=== PATIENT | male | born 1960 | race African-American/Black ===

== ENCOUNTER 2019-03-20 00:59 | Emergency (ER) | payer MEDICARE, OTHER ==
[~2019-03-20] VITALS: Ht 185.4 cm; Wt 87.8 kg
[2019-03-20 01:11] VITALS: Ht 185.4 cm; Wt 87.8 kg
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
[2019-03-20] MEDS ORDERED: DIV250 PO (03:34)
[2019-03-20] MEDS ORDERED: LEVE500S8 PO (03:34)
[2019-03-20] MEDS ORDERED: QUET25TA PO (03:34)
[2019-03-20] MEDS ORDERED: LEVETIRACETAM 1000 MG (PMX) 100 ML IVPB ONE (04:00)
[2019-03-20] MEDS ORDERED: DIVALPROEX (EC) 500 MG TAB PO ONE (04:00)
[2019-03-20] MEDS ORDERED: DIVALPROEX (EC) 250 MG TAB PO ONE (04:00)
[2019-03-20] MEDS ORDERED: LEVE750T70 PO (04:01)
[2019-03-20] MEDS ORDERED: DIVA-48 PO (04:02)
[2019-03-20 05:49] VITALS: BP 130/81; PULSE 81; RESP 18
== END 2019-03-20 05:57 | disposition home or self-care (01) ==
LOC: E/R 00:59
DX: G40.909 Epilepsy, unspecified, not intractable, without status epilepticus (principal); F10.10 Alcohol abuse, uncomplicated
CPT/HCPCS: 36415; 71045; 80048; 80164; 80185; 80307; 83880; 85025; 96374; 99284; J1953

== ENCOUNTER 2019-05-01 01:30 | Emergency (ER) | payer MEDICARE, OTHER ==
[~2019-05-01] VITALS: Ht 185.4 cm; Wt 82.4 kg
[~2019-05-01 01:30] MED LIST: DIV250 PO; DIVA-48 PO; LEVE500S8 PO; LEVE750T70 PO; QUET25TA PO
[2019-05-01 01:48] VITALS: Ht 185.4 cm; Wt 82.4 kg
--- NOTE | 2019-05-01 02:37 | ERD ---
ER Documentation Chief Complaint Chief Complaint needs help; suicidal thoughts no plan; on psych meds; drugs; alcohol intox HPI This is a 59-year-old male who presents for evaluation of suicidal ideations with the plan. Patient states that he has a history of alcohol abuse, he denies any homicidal ideations. He denies any recent head trauma, no fever. He endorses recent alcohol use. States he has been on psychiatric medications past, he is not sure about his diagnosis. ROS All systems reviewed and are negative except as per history of present illness. Medications Home Meds Active Scripts Divalproex Sodium* (Depakote*) 500 Mg Tablet.dr, 250 MG PO TID for 14 Days, TAB Prov:GABY COTTRELL MD 03/20/19 Levetiracetam* (Keppra*) 750 Mg Tablet, 750 MG PO BID for 14 Days, TAB Prov:GABY COTTRELL MD 03/20/19 Reported Medications Levetiracetam* (Levetiracetam*) 500 Mg/5 Ml Solution, 750 MG PO BID, ML 03/20/19 Divalproex Sodium* (Divalproex Sodium*) 250 Mg Tablet.dr, 250 MG PO TID, #90 TAB 03/20/19 Quetiapine Fumarate* (Seroquel*) 25 Mg Tablet, PO BID, #60 TAB 03/20/19 Allergies Allergies: Coded Allergies: morphine (Verified Allergy, Unknown, 03/20/19) PMhx/Soc Hx Neurological Disorder: Yes (s/d) Hx Respiratory Disorders: Yes (COPD) Hx Cardiac Disorders: Yes (CHF ) Hx Psychiatric Problems: Yes (BIPOLAR) Hx Alcohol Use: Yes Hx Substance Use: Yes Hx Tobacco Use: Yes Smoking Status: Current every day smoker Physical Exam Vitals Vital Signs Date Temp Pulse Resp B/P (MAP) Pulse Ox O2 O2 Flow FiO2 Time Delivery Rate 05/01/19 97.8 95 16 127/63 98 01:48 (84) Physical Exam Const: Disheveled appearing, speech is pressured Head: Atraumatic Eyes: Normal Conjunctiva ENT: Normal External Ears, Nose and Mouth. Neck: Full range of motion. No meningismus. Resp: Clear to auscultation bilaterally Cardio: Regular rate and rhythm, no murmurs Abd: Soft, non tender, non distended. Normal bowel sounds Skin: No petechiae or rashes Back: No midline or flank tenderness Ext: No cyanosis, or edema Neur: Awake and alert Psych: Endorses suicidal ideations, does not have a plan Procedures/MDM Is a 59-year-old male who presents for evaluation of suicidal ideations. Patient presents with EtOH intoxication, however he is lucid and conversive, and at this point he is medically cleared, psychiatry will be consulted for further evaluation. Departure Diagnosis: Primary Impression: Suicidal ideation Condition: YUDY Flowers MD May 01, 2019 02:37
--- NOTE | 2019-05-01 03:37 | PSY ---
Date/Time of Note Date/Time of Note DATE: 05/01/19 TIME: 03:27 Psychiatric Subjective Eval Consent Pt consented to telemedicine: Yes Subjective Evaluation Patient location: emergency Chief Complaint: needs help; suicidal thoughts no plan; on psych meds; drugs; alcohol intox History of present illness He made a very rambling statement about coming from half-way and then stating my name and then said "suicidal" and "had a drink today." He talked about a "pool of oil" and a stone. He stated he has had thoughts of suicide for about a week. He could not state what his plan would be. He stated, "I hear voices." He gave a disorganized response when asked for specifics but said something about "saying I'm all bad." He stated, "Yes" when asked about violent thoughts or urges but again gave a disorganized response when asked for more details. Past psychiatric history Denied any current treatment. Stated he used to take medications - doesn't remember the names. He stated he was diagnosed with "diabetic neuritis." He then talked about paranoid schizophrenia and bipolar. Hospitalization: yes (Several past admissions. ) Family History None. Medical history Problems Medical Problems: (1) Alcohol abuse Status: Acute (2) Recurrent seizures Status: Acute (3) Suicidal ideation Status: Acute Allergies: Coded Allergies: morphine (Verified Allergy, Unknown, 03/20/19) Substance Abuse Substance use: other (Drinks about two pints per day. Stated something about cocaine as well. ) Substance abuse history: Yes Social History Marital status: single DPA/Conservatorship: No Occupation/[employer]: Gets $1350 per month. Psychiatric Objective Eval Mental Status Examination: Appearance: Bizarre Eye Contact: Fair Psychomotor Activity: Normal Behavior: Cooperative Speech: Disorganized AFFECT: Blunt Mood: Appropriate/Full Though Process: Illogical Thought Content: Hallucinations Suicidal: Yes (Reported no plan) Homicidal: Yes (Said "Yes" and then gave disorganized response) On 72 hour hold: No Orientation: x2 Cognition: Drowsy Insight: Impared Judgement: Impared Attention Span: Intact Laboratory Results Laboratory Tests Test 05/01/19 02:49 White Blood Count 7.1 10^3/ul Red Blood Count 5.04 10^6/ul Hemoglobin 13.9 g/dl Hematocrit 41.5 % Mean Corpuscular Volume 82.3 fl Mean Corpuscular Hemoglobin 27.6 pg Mean Corpuscular Hemoglobin Concent 33.5 g/dl Red Cell Distribution Width 15.0 % Platelet Count 265 10^3/UL Mean Platelet Volume 9.9 fl Immature Granulocytes % 0.300 % Neutrophils % 47.3 % Lymphocytes % 42.6 % Monocytes % 7.2 % Eosinophils % 2.0 % Basophils % 0.6 % Nucleated Red Blood Cells % 0.0 /100WBC Immature Granulocytes # 0.020 10^3/ul Neutrophils # 3.3 10^3/ul Lymphocytes # 3.0 10^3/ul Monocytes # 0.5 10^3/ul Eosinophils # 0.1 10^3/ul Basophils # 0.0 10^3/ul Nucleated Red Blood Cells # 0.0 10^3/ul Sodium Level 146 mmol/L Potassium Level 3.3 mmol/L Chloride Level 111 mmol/L Carbon Dioxide Level 21 mmol/L Anion Gap 14 Blood Urea Nitrogen 15 mg/dl Creatinine 0.84 mg/dl Est Glomerular Filtrat Rate mL/min > 60 mL/min Glucose Level 92 mg/dl Calcium Level 9.5 mg/dl Total Bilirubin 0.2 mg/dl Direct Bilirubin 0.00 mg/dl Indirect Bilirubin 0.2 mg/dl Aspartate Amino Transf (AST/SGOT) 37 IU/L Alanine Aminotransferase (ALT/SGPT) 24 IU/L Alkaline Phosphatase 97 IU/L Total Protein 8.4 g/dl Albumin 4.4 g/dl Globulin 4.00 g/dl Albumin/Globulin Ratio 1.10 Salicylates Level < 1.0 mg/dl Acetaminophen Level < 10.0 ug/ml Ethyl Alcohol Level 97.0 mg/dl Assessment and Plan Assessment/Diagnosis Diagnosis Unspecified Psychosis Alcohol Use Disorder Recommendation/Plan Multiple antipsychotics: No Discharge Disposition: Psychiatric inpatient Legal Status: Place involuntary hold Other Individual had significant disorganization beyond what would be expected for such a mildly elevated BAL. ZAHRA HUSSEIN MD May 01, 2019 03:37
[2019-05-01 13:03] VITALS: BP 112/77; PULSE 85; RESP 17
== END 2019-05-01 13:40 ==
LOC: E/R 01:30
DX: R45.851 Suicidal ideations (principal); J44.9 Chronic obstructive pulmonary disease, unspecified; I50.9 Heart failure, unspecified; F17.210 Nicotine dependence, cigarettes, uncomplicated
CPT/HCPCS: 80053; 80307; 81001; 81003; 85025